=== PATIENT | male | born 1995 | race Caucasian/White ===

== ENCOUNTER 2018-06-03 12:29 | Emergency (ER) | payer SELFPAY ==
[2018-06-03 13:51] LABS: ABS Basophils 0 10^3/ul (0-0.2); ABS Eosinophils 0.5 10^3/ul (0-0.6); ABS Lymphocytes 1.6 10^3/ul (1.0-4.8); ABS Monocytes 0.4 10^3/ul (0-0.8); ABS Neutrophils 4.5 10^3/ul (1.5-7.7); ABS Nucleated RBC 0 10^3/ul; Eosinophil % 6.9 %; Hematocrit 42 % (42-52); Hemoglobin 14.5 g/dl (14.0-18.0); Lymphocyte % 22.8 %; Mean Corpuscular HGB Conc 34 g/dl (31-36); Mean Corpuscular Hemoglobin 30 pg (27-31); Mean Corpuscular Volume 88 fL (80-94); Mean Platelet Volume 8.3 fL (7.4-10.4); Nucleated Red Blood Cells % 0; Platelet Count 281 10^3/ul (150-450); Red Blood Count 4.82 10^6/ul (4.00-5.40); Red Cell Distribution Width 13 % (10.5-15); White Blood Count 7.1 10^3/ul (3.5-10.8)
[2018-06-03] MEDS ORDERED: Midazolam* 1 MG/ML 10 ML VIAL (10 MG) ONE (13:54)
[2018-06-03] MEDS ORDERED: fentaNYL* 50 MCG/ML 2 ML VIAL (100 MCG VIAL) ONE (13:54)
[2018-06-03] MEDS ORDERED: NS 0.9% 1000 ML** 1,000 ML IV ONE (13:55)
--- NOTE | 2018-06-03 14:00 | ED ---
Throat Pain/Nasal Congestion - HPI Summary HPI Summary: Patient is a 22-year-old male who is otherwise healthy presenting to the ED with possible food bolus. He states he was eating sausage approximately 1 hour [facility] when he was unable to swallow. He currently is unable to swallow saliva. He appears uncomfortable on exam. He has never had anything like this before. He denies any esophageal issues otherwise to his knowledge. He has not tried anything at home for relief. - History of Current Complaint Chief Complaint: EDForeignBodyEsophag Time Seen by Provider: 06/03/18 12:41 Hx Obtained From: Patient Onset/Duration: Sudden Onset Severity: Mild Associated Signs And Symptoms: Positive: Dysphagia, Drooling - Epiglottits Risk Factors Epiglottis Risk Factors: Negative - Allergies/Home Medications Allergies/Adverse Reactions: Allergies Allergy/AdvReac Type Severity Reaction Status Date / Time No Known Allergies Allergy Unverified 06/03/18 12:33 PMH/Surg Hx/FS Hx/Imm Hx Previously Healthy: Yes Endocrine/Hematology History: Denies: Hx Anticoagulant Therapy, Hx Diabetes, Hx Thyroid Disease Cardiovascular History: Denies: Hx Hypertension - border line htn, Hx Pacemaker/ICD Respiratory History: Reports: Hx Asthma Denies: Hx Chronic Obstructive Pulmonary Disease (COPD) GI History: Denies: Hx Ulcer History: Denies: Hx Renal Disease Neurological History: Denies: Hx Dementia, Hx Seizures Psychiatric History: Denies: Hx Substance Abuse - Surgical History Surgery Procedure, Year, and Place: tendon reconnected to lt hand 5yrs ago - Immunization History Hx Pertussis Vaccination: No Immunizations Up to Date: Yes Infectious Disease History: No Infectious Disease History: Denies: Hx Clostridium Difficile, Hx Hepatitis, Hx Human Immunodeficiency Virus (HIV), Hx of Known/Suspected MRSA, Hx Shingles, Hx Tuberculosis, Hx Known/ Suspected VRE, Hx Known/Suspected VRSA, History Other Infectious Disease, Traveled Outside the [place] in Last 30 Days - Social History Occupation: Unemployed Lives: With Family Alcohol Use: Rare Hx Substance Use: Yes Substance Use Type: Reports: Marijuana Substance Use Comment - Amount & Last Used: last 06/30; approx 2-3 times per week Hx Tobacco Use: Yes Smoking Status (MU): Former Smoker Type: Cigarettes Amount Used/How Often: 2-3 per day Length of Time of Smoking/Using Tobacco: 7years Have You Smoked in the Last Year: Yes Review of Systems Negative: Fever, Chills, Fatigue, Skin Diaphoresis Positive: Sore Throat Negative: Palpitations, Chest Pain Negative: Shortness Of Breath, Cough Genitourinary: Negative Positive: no symptoms reported, see HPI Negative: Rash, Bruising Negative: Headache, Weakness, Paresthesia All Other Systems Reviewed And Are Negative: Yes Physical Exam Triage Information Reviewed: Yes Vital Signs On Initial Exam: Initial Vitals Temp Pulse Resp BP Pulse Ox 97.7 F 72 16 138/88 100 06/03/18 12:30 06/03/18 12:30 06/03/18 12:30 06/03/18 12:30 06/03/18 12:30 Vital Signs Reviewed: Yes Appearance: Positive: Well-Appearing, Well-Nourished Skin: Positive: Warm, Skin Color Reflects Adequate Perfusion Head/Face: Positive: Normal Head/Face Inspection Eyes: Positive: EOMI, MANOJ, Conjunctiva Clear ENT: Positive: Tonsillar exudate - white spots bilaterally in posterior pharynx - no evidence of FB, Uvula midline, Other - drooling. Negative: Tonsillar swelling Neck: Positive: Supple, No Lymphadenopathy Respiratory/Lung Sounds: Positive: Clear to Auscultation, Breath Sounds Present Cardiovascular: Positive: Normal, RRR, Pulses are Symmetrical in both Upper and Lower Extremities Neurological: Positive: Sensory/Motor Intact, Alert, Oriented to Person Place, Time, Speech Normal Psychiatric: Positive: Normal, Affect/Mood Appropriate Diagnostics - Vital Signs Vital Signs Temp Pulse Resp BP Pulse Ox 06/03/18 13:27 56 109/69 97 06/03/18 13:00 61 96 06/03/18 12:58 69 96 06/03/18 12:57 75 127/69 98 06/03/18 12:30 97.7 F 72 16 138/88 100 - Laboratory Lab Results: Lab Results 06/03/18 Range/Units 13:34 WBC 7.1 (3.5-10.8) 10^3/ul RBC 4.82 (4.00-5.40) 10^6/ul Hgb 14.5 (14.0-18.0) g/dl Hct 42 (42-52) % MCV 88 (80-94) fL MCH 30 (27-31) pg MCHC 34 (31-36) g/dl RDW 13 (10.5-15) % Plt Count 281 (150-450) 10^3/ul MPV 8.3 (7.4-10.4) fL Neut % (Auto) 64.0 % Lymph % (Auto) 22.8 % [place] % (Auto) 5.7 % Eos % (Auto) 6.9 % Baso % (Auto) 0.6 % Absolute Neuts (auto) 4.5 (1.5-7.7) 10^3/ul Absolute Lymphs (auto) 1.6 (1.0-4.8) 10^3/ul Absolute Monos (auto) 0.4 (0-0.8) 10^3/ul Absolute Eos (auto) 0.5 (0-0.6) 10^3/ul Absolute Basos (auto) 0 (0-0.2) 10^3/ul Absolute Nucleated RBC 0 10^3/ul Nucleated RBC % 0 Result Diagrams: 06/03/18 13:34 06/03/18 13:34 Lab Statement: Any lab studies that have been ordered have been reviewed, and results considered in the medical decision making process. EENT Course/Dx - Course Course Of Treatment: On arrival, patient appears uncomfortable with an erythematous base. Patient is spitting up saliva and water. He is unable to handle secretions. GI, Dwight Arceo called who agrees to see ptaient in the ED. labs obtained, EKG obtained. [address] Quintanilla to see patient was able to dislodge the piece of meat. I was advised to give omeprazole 40 mg daily as prescription and he will follow up with Dr. Quintanilla's office. - Diagnoses Provider Diagnoses: Foreign body - Provider Notifications Discussed Care Of Patient With: Carlos Quintanilla Discharge - Sign-Out/Discharge Documenting (check all that apply): Patient Departure Patient Received Moderate/Deep Sedation with Procedure: No - Discharge Plan Condition: Stable Disposition: HOME Prescriptions: Omeprazole 40 mg PO DAILY #30 capsule. Patient Education Materials: Esophagitis (ED) Referrals: Juan Pablo Camacho MD [Primary Care Provider] - Carlos Quintanilla MD [Medical Doctor] - Additional Instructions: Omeprazole 40mg (1 tab) daily until follow up I have given you a referral to Dr. Quintanilla - please follow up at his office for outpatient care - Billing Disposition and Condition Condition: STABLE Disposition: Home
[2018-06-03 14:08] LABS: Albumin 4.1 g/dL (3.2-5.2); Albumin/Globulin Ratio 1.6 (1-3); BUN/Creatinine Ratio 13.4 (8-20); C Reactive Protein 1.44 mg/L (<8.01); CRP High Sensitivity 1.24 mg/L (<2.00); Calcium 9.2 mg/dL (8.6-10.3); EGFR African American 140.9 (>60); EGFR Non-African American 116.4 (>60); Globulin 2.5 g/dL (2-4); Potassium 4.1 mmol/L (3.5-5.0); Total Bilirubin 0.3 mg/dL (0.2-1.0); Total Protein 6.6 g/dL (6.4-8.9)
[2018-06-03 16:13] VITALS: BP 115/55
--- NOTE | 2018-06-03 16:35 | CONS ---
GASTROENTEROLOGY CONSULT: DATE: 06/03 - EMERGENCY DEPT CONSULTING PHYSICIAN: Maximus Tomlin. REASON FOR CONSULTATION: Inability to swallow, patient who had a piece of sausage get stuck. HISTORY OF PRESENT ILLNESS: This 22-year-old man this morning was eating sausage and felt a plug. Immediately, he was unable to handle his own saliva and has been spitting into a bag. This has now gone on for hours. He has a history of multiple episodes where something will seem to get stuck and he says he usually panics. He is able to bring the offending item up or it goes down. He denies any history of acid indigestion or heartburn and takes no stomach remedies. He has no regular physician at this time. PAST MEDICAL HISTORY: 1. Hand surgery. 2. Recurrent dysphagia - see above. SOCIAL HISTORY: He is single, works in a [employer] and his parents live in town. REVIEW OF SYSTEMS: He has no history of cardiac, pulmonary, hepatic, or renal disease. He is not treated for asthma or any allergies. He is on no specific dietary restrictions. PHYSICAL EXAM: He is a stockily built young man in the emergency room, afebrile , spitting into a bag. He has no adenopathy. His lungs are clear and heart sounds are regular. The abdomen is symmetric, firm, and without focal finding. Extremities show no edema. LABORATORY DATA: Labs - pending. IMPRESSION: This 22-year-old man has a history quite suggestive of eosinophilic esophagitis. He currently has a meat impaction in the mid esophagus. The approach to this with sedation and either advancement or withdrawal of the offending item was reviewed in detail. He knows there is a small chance of needing to be admitted or even get antibiotics or surgery. He knows that dilation is advised to prevent this from happening, but that will have to occur at a later date. [id number]/[facility] #: [id number] [facility] HEALTHChavez
--- NOTE | 2018-06-03 20:41 | PRO ---
GASTROENTEROLOGY PROCEDURE: DATE: 06/03/18 - EMERGENCY DEPT PROCEDURE: EGD and foreign body removal, mid esophagus. INDICATION: This 22-year-old man came to the emergency room, salivating, and unable to handle his own secretions. He had a piece of sausage stuck in his midesophagus. See separate consultation. ENDOSCOPIST: Dr. Quintanilla. MEDICATIONS: Midazolam 14, fentanyl 150 with good cooperation. FINDINGS: He is a robustly built young man in no distress, other than salivating. He was positioned left side down and moderate sedation induced with sequential doses of medication. EGD: Larynx - the tonsils are enlarged symmetrically and somewhat erythematous and turgid, meeting in the midline. It is easy to go between them. They are not bleeding. There is no gross purulence. Esophagus - easily entered. The mucosa is normal for a few centimeters and then furrowing is noted and some ring formation. There is a meat foreign body. It was difficult to engage with a foreign body net. It did end up being cut up and dispersed somewhat with manipulation and then advanced into the distal esophagus. The adult scope would not pass beyond about 40% the way down the esophagus due to gradually tightening rings. A pediatric scope was then chosen and did go through and, with CO2 insufflation , was seen to blow the foreign body down through the end of the esophagus and into the stomach. There were more rings and clear-cut furrowing. There were no peptic erosions. Stomach - generally normal mucosa without any erythema or erosions. Duodenum - normal pylorus, bulb, and second and third portions. IMPRESSION: 1. Esophageal foreign body - cleared. 2. Esophageal stenosis with rings and furrows virtually diagnostic of eosinophilic esophagitis - the patient will be placed on omeprazole 20 mg and then followup options will be discussed. Eating pattern and attention to detail are clearly crucial now and will remain important indefinitely. [id number]/[facility] #: [id number] [facility]
== END 2018-06-03 15:39 | disposition home or self-care (01) ==
LOC: ED 12:29
DX: T18.128A Food in esophagus causing other injury, initial encounter (principal); X58.XXXA Exposure to other specified factors, initial encounter; Y92.9 Unspecified place or not applicable; K20.0 Eosinophilic esophagitis; Z87.891 Personal history of nicotine dependence
CPT/HCPCS: 36415; 80053; 83605; 85025; 86140; 86141; 86308; 87651; 99156; 99157; 99283; J2250; J3010

== ENCOUNTER 2019-02-27 23:53 | Emergency (ER) | payer OTHER ==
[2019-02-28] MEDS ORDERED: Glucagon* 1 MG VIAL IM ONE (01:53)
--- NOTE | 2019-02-28 01:56 | ED ---
Throat Pain/Nasal Congestion - HPI Summary HPI Summary: This pt is a 23 Y/O M presenting to [facility] with a CC of chicken stuck in his throat after eating dinner at 2300 and is currently rated a 2/10 in severity. He states that he attempted to vomit and drinking water without relief. He states that he had a similar episode a couple months ago and was Dx with esophagitis. He denies any nausea, headaches, coughs, and fevers. He states that he was given Omeprazole and has been inconsistent with taking his medications. He states that he has no aggravating or alleviating factors. He has a pertinent PMHx of a recent Dx with esophagitis. - History of Current Complaint Chief Complaint: EDForeignBodyEsophag Time Seen by Provider: 02/28/19 01:47 Hx Obtained From: Patient Onset/Duration: Sudden Onset, Lasting Hours - 5 Severity: Mild - 2/10 Associated Signs And Symptoms: Positive: Drooling Cough: None - Allergies/Home Medications Allergies/Adverse Reactions: Allergies Allergy/AdvReac Type Severity Reaction Status Date / Time No Known Allergies Allergy Unverified 02/28/19 00:00 Home Medications: Home Medications NK [No Home Medications Reported] 02/28/19 [History Confirmed 02/28/19] PMH/Surg Hx/FS Hx/Imm Hx Previously Healthy: Yes Endocrine/Hematology History: Denies: Hx Anticoagulant Therapy, Hx Diabetes, Hx Thyroid Disease Cardiovascular History: Denies: Hx Hypertension - border line htn, Hx Pacemaker/ICD Respiratory History: Reports: Hx Asthma Denies: Hx Chronic Obstructive Pulmonary Disease (COPD) GI History: Reports: Other GI Disorders - esophagitis Denies: Hx Ulcer History: Denies: Hx Renal Disease Neurological History: Denies: Hx Dementia, Hx Seizures Psychiatric History: Denies: Hx Substance Abuse - Cancer History Hx Chemotherapy: No Hx Radiation Therapy: No - Surgical History Surgical History: Yes Surgery Procedure, Year, and Place: tendon reconnected to [facility] 5yrs ago - Immunization History Immunizations Up to Date: Yes Infectious Disease History: No Infectious Disease History: Denies: Hx Clostridium Difficile, Hx Hepatitis, Hx Human Immunodeficiency Virus (HIV), Hx of Known/Suspected MRSA, Hx Shingles, Hx Tuberculosis, Hx Known/ Suspected VRE, Hx Known/Suspected VRSA, History Other Infectious Disease, Traveled Outside the [place] in Last 30 Days - Family History Known Family History: Negative: Hypertension, Diabetes - Social History Occupation: Employed Part-time Lives: Alone Alcohol Use: Rare Hx Substance Use: Yes Substance Use Type: Reports: Marijuana Substance Use Comment - Amount & Last Used: last 06/30; approx 2-3 times per week Hx Tobacco Use: Yes Smoking Status (MU): Former Smoker Type: Cigarettes Amount Used/How Often: 2-3 per day Length of Time of Smoking/Using Tobacco: 7years Have You Smoked in the Last Year: Yes Review of Systems - ROS Summary Review of Systems Summary: Home Medications Medication Instructions Recorded Confirmed Type Omeprazole 40 mg PO DAILY #30 capsule. 06/03/18 Rx Negative: Fever ENT: Other - states chicken stuck in throat Negative: Cough Positive: Vomiting - self-inflicted . Negative: Nausea Negative: Headache All Other Systems Reviewed And Are Negative: Yes Physical Exam - Summary Physical Exam Summary: General: Well-developed, Well-nourished male. No acute distress. HEENT: Normocephalic, Atraumatic. Eyes: Conjuctiva normal, PERRL. Ears: TMs within normal limits. Nares: (-) discharge, (-) erythema. Oropharynx: Clear, mucous membranes moist, (-) exudates. Neck: Soft, FROM, (-) lymphadenopathy, (-) thyromegaly, (-) JVD. Cardiovascular: Normal sinus rhythm, (-) murmur. Lungs: Clear to auscultation bilaterally (-) wheezes, (-) rales, (-) rhonchi. Abdomen: Soft, non-tender, non-distended, (-) organomegaly, normal bowel sounds. Back: (-) CVA tenderness Extremities: No edema. Skin: Warm, dry, (-) rash. Neuro: Alert and oriented x3, no focal deficits. Psychiatric: Mood normal, affect normal. Triage Information Reviewed: Yes Vital Signs On Initial Exam: Initial Vitals Temp Pulse Resp BP Pulse Ox 97.4 F 74 16 127/91 97 02/27/19 23:58 02/27/19 23:58 02/27/19 23:58 02/27/19 23:58 02/27/19 23:58 Vital Signs Reviewed: Yes Procedures - Sedation Patient Received Moderate/Deep Sedation with Procedure: No Diagnostics - Vital Signs Vital Signs Temp Pulse Resp BP Pulse Ox 02/28/19 01:12 62 97 02/28/19 01:05 130/65 02/28/19 00:35 59 123/72 96 02/28/19 00:05 78 139/88 95 02/28/19 00:04 83 97 02/27/19 23:58 97.4 F 74 16 127/91 97 - Laboratory Lab Statement: Any lab studies that have been ordered have been reviewed, and results considered in the medical decision making process. Re-Evaluation - Re-Evaluation First Eval Re-Evaluation Time: 04:55 Change: Worse Comment: Pt states that his symptoms are worse and that he has been "chocking on this food every 30 minutes." Second Eval Re-Evaluation Time: 07:36 Third Eval Re-Evaluation Time: 13:46 Comment: Physician discusses pt's discharge with pt. EENT Course/Dx - Course Course Of Treatment: 23-year-old male with foreign body sensation in esophagus. Patient given glucagon IM. Unable to tolerate GI cocktail. Patient extremely anxious and agitated. Given Ativan and patient was able to relax. Patient is sleeping soundly at this time. This pt is a sign out to Dr. Freeman from Dr. Mobley at shift change 0700 02/28/19 pending recheck and disposition. - Diagnoses Provider Diagnoses: Sensation of foreign body in esophagus Discharge ED - Sign-Out/Discharge Documenting (check all that apply): Sign-Out Patient Signing out patient TO: Calvin Freeman - Discharge Plan Condition: Stable Disposition: HOME Patient Education Materials: Esophageal Foreign Body (ED), Moderate Sedation ( ED) Referrals: Jaguar Ray MD [Medical Doctor] - 7 Days Juan Pablo Camacho MD [Primary Care Provider] - 7 Days - Billing Disposition and Condition Condition: STABLE Disposition: Home - Attestation Statements Document Initiated by Scribe: Yes Documenting Scribe: Gelnn Gao Provider For Whom Scribe is Documenting (Include Credential): Ruth Mobley MD Scribe Attestation: Glenn Watts, scribed for Ruth Mobley MD on 02/28/19 at 1924. Scribe Documentation Reviewed: Yes Provider Attestation: The documentation as recorded by the scribe, Glenn Murray accurately reflects the service I personally performed and the decisions made by me, Ruth Mobley MD Status of Scribe Document: Viewed
[2019-02-28] MEDS ORDERED: Al Hydrox/Mg Hydrox/Simet LIQ* 30 ML UDC ONE (03:25)
[2019-02-28] MEDS ORDERED: Lidocaine 2% VISCOUS* 15 ML UDC ONE (03:27)
[2019-02-28] MEDS ORDERED: Lidocaine 2% VISCOUS* 15 ML UDC PO ONE (03:28)
[2019-02-28] MEDS ORDERED: Al Hydrox/Mg Hydrox/Simet LIQ* 30 ML UDC PO ONE (03:28)
[2019-02-28] MEDS ORDERED: Lorazepam PYXIS KEY ONE (05:01)
[2019-02-28] MEDS ORDERED: LORazepam INJ* 2 MG/ML 1 ML VIAL ONE (05:02)
[2019-02-28] MEDS ORDERED: LORazepam INJ* 2 MG/ML 1 ML VIAL IV PUSH ONE (05:09)
--- NOTE | 2019-02-28 07:17 | ED ---
Progress - Progress Note Progress Note: This pt is a sign out to Dr. Freeman from Dr. Mobley at shift change 0700 02/28/19 pending arousal after Ativan wear off. 0734: Dr. Ray, GI, will come down to see patient. Pt was moderately sedated while Dr. Ray removed the foreign body (chicken) from his esophagus. Re-Evaluation - Re-Evaluation First Eval Re-Evaluation Time: 04:55 Change: Worse Comment: Pt states that his symptoms are worse and that he has been "chocking on this food every 30 minutes." Second Eval Re-Evaluation Time: 07:36 Third Eval Re-Evaluation Time: 13:46 Comment: Physician discusses pt's discharge with pt. Course/Dx - Course Course Of Treatment: This pt is a sign out to Dr. Freeman from Dr. Mobley at shift change 0700 02/28/19 pending arousal after Ativan wear off. --------. This patient is a 23-year-old male who was signed out by Dr. Mobley at shift change. She reports that the patient came with a foreign body in esophagus. The patient was given glucagon, GI cocktail, and Ativan. Dr. Mobley reports the patient is resting comfortably. I went to see the patient and he is drooling on top of his shirt, the patient reports that he is not feeling any better, the patient attempted to swallow a sip water and he couldn t. Therefore, I discussed my physical exam and findings with Dr. Ray and he will do a consult this patient. Dr. Ray consulted the patient. He performed an endoscopy. He removed a piece of chicken from the esophagus. He also reports that he took a couple biopsies. He recommends that the patient be discharged home after the patient is alert and oriented 3. At this time the patient is alert and oriented 3. The patient is eating and drinking without any nausea vomiting and he is able to swallow freely. Therefore he will be discharged home and follow-up with GI and his primary care physician. Patient is hemodynamically stable alert and oriented 3. - Diagnoses Provider Diagnoses: Sensation of foreign body in esophagus Discharge ED - Sign-Out/Discharge Documenting (check all that apply): Patient Departure - discharge - Discharge Plan Condition: Stable Disposition: HOME Patient Education Materials: Esophageal Foreign Body (ED), Moderate Sedation ( ED) Referrals: Juan Pablo Camacho MD [Primary Care Provider] - 7 Days Jaguar Ray MD [Medical Doctor] - 7 Days - Billing Disposition and Condition Condition: STABLE Disposition: Home - Attestation Statements Document Initiated by Suzanneibmanuel: Yes Documenting Scribe: Nissa Moreno Provider For Whom Shayna is Documenting (Include Credential): Dr. Calvin Freeman MD Scribe Attestation: Nissa Watts scribed for Dr. Calvin Freeman MD on 03/01/19 at 1853. Scribe Documentation Reviewed: Yes Provider Attestation: The documentation as recorded by the Nissa lester accurately reflects the service I personally performed and the decisions made by me, Dr. Calvin Freeman MD Status of Scribe Document: Viewed
[2019-02-28] MEDS ORDERED: Midazolam* 1 MG/ML 10 ML VIAL (10 MG) ONE (09:28)
[2019-02-28] MEDS ORDERED: fentaNYL* 50 MCG/ML 2 ML VIAL (100 MCG VIAL) ONE (09:28)
--- NOTE | 2019-02-28 09:51 | CONS ---
CONSULTATION REPORT: DATE OF CONSULT: 02/28/19 INDICATION FOR CONSULTATION: Esophageal foreign body. LOCATION OF CONSULTATION: Emergency Room, room 9. NARRATIVE: Mr. Ludwig is a pleasant 23-year-old gentleman, who has a history of suspected eosinophil ic esophagitis, this was seen on an EGD, 06/03/18. He was scoped emergently by Dr. Quintanilla for a for eign body food impaction. He has multiple rings consistent with eosinophilic esophagitis, but no bio psies were taken at that time. The patient was asked to follow up for further evaluation workup and diagnosis, however, the patient did not comply. The patient states that last night at approximately 11 p.m., he was eating chicken and it became stuck. He states that this has happened multiple times in the past few months, usually he is able to vomit it, this time he is unable to clear it on his own . He is drooling, unable to handle his own secretions and cannot tolerate water. He presented to [facility] emergency room around 1 a.m. and was given some Ativan at that time. The patient did fall asleep a nd I was not made aware of the patient until approximately 7:34 a.m. this morning. The patient denie s any new medical history since 6 months ago. He denies any NSAIDs or anticoagulants. PAST MEDICAL HISTORY: Significant for suspected eosinophilic esophagitis, not biopsy proven yet. No other past medical history other than anxiety. PAST SURGICAL HISTORY: Includes hand surgery. MEDICATIONS: None. ALLERGIES: He has no known drug allergies. FAMILY HISTORY: No esophageal malignancies in the family. REVIEW OF SYSTEMS: Twelve systems were reviewed and other than that mentioned in the HPI were unrema rkable. PHYSICAL EXAMINATION: Temperature is 97.4, blood pressure is 134/81, pulse is 72, O2 sat is 99%. Ge neral: Well-appearing man, in no apparent distress, alert, oriented, pleasant, fluent. HEENT: Muco us membranes are moist without lesions, ulcer, or exudate. Neck: Supple. Tracheal is midline. Hea d is normocephalic, atraumatic. Psych: Appears somewhat concerned and anxious. Heart: Regular rat e and rhythm. No murmurs. Lungs: Clear to auscultation bilaterally. No wheezes, rales, or rhonchi . Abdomen: Positive bowel sounds, soft, nontender, nondistended. No hepatosplenomegaly, masses, mila ound, or guarding. Skin is warm and dry. LABORATORY DATA: None. RADIOLOGY DATA: None. ASSESSMENT AND PLAN: This is a 23-year-old gentleman with suspected eosinophilic esophagitis, who di d not followup with his medicine technologist and now presents with a repeat foreign esophageal food imp action likely chicken. At this time, I had a discussion with the patient regarding eosinophilic esop hagitis and the need for followup. I also had a discussion with him regarding the procedure we are jessica choudhary to perform, risk, benefits, and alternatives. He is understanding and agreeable. I will make a rrangements for his EGD in the emergency room. He tells me he has a ride available to drive him home and I reiterated multiple times that he needs to follow up with his medicine technologist, Dr. Quintanilla for further workup and management. [id number]/[facility] #: [id number]
--- NOTE | 2019-02-28 11:45 | PRO ---
DATE OF PROCEDURE: 02/28/19 - EMERGENCY DEPT PROCEDURE PERFORMED: Esophagogastroduodenoscopy. INDICATION: Esophageal foreign body. MEDICATIONS GIVEN: 175 mcg IV fentanyl, 5 mg IV Versed. DESCRIPTION OF PROCEDURE: After the EGD procedure including the risks, benefits , and alternatives not limited to perforation, surgery, and/or were explained to Mr. Ludwig, written consent was then obtained. IV medication was given and a bite block was placed between the teeth. An Olympus gastroscope was then inserted into the patient's mouth and advanced down the esophagus, and into the proximal esophagus, there was an obvious esophageal foreign body; most likely chicken per the patient's recollection. I then inserted a [place] Net and placed the net around the top of the chicken. I grasped the chicken and slowly removed it from his esophagus and it came out very easily. I then performed a second look with the adult scope. Unfortunately, due to his likely eosinophilic esophagitis and rings, the adult scope would not traverse the upper to mid esophagus and thus, I switched down to the pediatric gastroscope. It easily traversed down the esophagus into the stomach into the distal duodenum. The esophagus was now widely patent and open. I did take biopsies using regular biopsy forceps of the esophagus to evaluate for eosinophilic esophagitis, which is what it appears he has. Scope was then withdrawn from the patient. He tolerated the procedure well and was returned to the care of the ED staff. IMPRESSION: 1. Complete upper endoscopy into the distal duodenum with esophageal foreign body removal and biopsies. 2. Esophageal foreign body, status post removal. 3. Biopsies due to changes consistent with eosinophilic esophagitis. 4. The patient was instructed to call Dr. Quintanilla, his drugless doctor, on Saturday. The patient had Dr. Quintanilla's phone number. He will need to follow up with Dr. Quintanilla to start therapy for eosinophilic esophagitis as long as the biopsies confirm this. He is understanding and agreeable. [id number]/[facility] [place] #: [id number] [facility]
[2019-02-28 14:05] VITALS: BP 121/78
== END 2019-02-28 13:57 | disposition home or self-care (01) ==
LOC: ED 23:53
DX: T18.128A Food in esophagus causing other injury, initial encounter (principal); X58.XXXA Exposure to other specified factors, initial encounter; Y92.9 Unspecified place or not applicable; J45.909 Unspecified asthma, uncomplicated; Z87.891 Personal history of nicotine dependence
CPT/HCPCS: 88305; 96372; 96374; 99156; 99157; 99284; A9270-GY; J1610; J2060; J2250; J3010